=== PATIENT | female | born 1970 | race Caucasian/White ===

== ENCOUNTER 2018-05-01 14:13 | Emergency (ER) | payer OTHER ==
[2018-05-01] MEDS ORDERED: ETOMIDATE INJ/PF 20 MG/10 ML SDV IV ONE ×3 (14:16→14:24)
[2018-05-01] MEDS ORDERED: PROPOFOL 1,000 MG/100 ML INFUS..BTL IV ONE (14:17)
[2018-05-01] MEDS ORDERED: SUCCINYLCHOLINE CHLORIDE INJ 200 MG/10 ML VIAL IV ONE (14:25)
[2018-05-01] MEDS ORDERED: MIDAZOLAM HCL 50 MG/100 ML RTUINJ IV PRN (14:59)
[2018-05-01] MEDS ORDERED: MIDAZOLAM HCL 50 MG/100 ML RTUINJ ONE (14:59)
[2018-05-01 15:02] LABS: ABSOLUTE BASOPHILS # (AUTO) 0.1 10^3/uL (0.0-0.2); ABSOLUTE LYMPHOCYTES (AUTO) 1.4 10^3/uL (0.5-4.7); ABSOLUTE MONOCYTES (AUTO) 0.4 10^3/uL (0.1-1.4); ABSOLUTE NEUT (AUTO) 6.7 10^3/uL (1.7-8.2); BASOPHILS % (AUTO) 0.8 % (0-2); EOSINOPHILS % (AUTO) 0.5 % (0-6); HEMATOCRIT 39.4 % (36.0-47.0); HEMOGLOBIN 13.5 g/dL (12.0-15.5); LYMPHOCYTES % (AUTO) 15.7 % (13-45); MEAN CORPUSCULAR HEMOGLOBIN 30.8 pg (27.0-33.4); MEAN CORPUSCULAR HGB CONC 34.2 g/dL (32.0-36.0); MEAN CORPUSCULAR VOLUME 90 fl (80-97); MONOCYTES % (AUTO) 5.2 % (3-13); PLATELET COUNT 447 10^3/uL (150-450); RED BLOOD COUNT 4.37 10^6/uL (3.72-5.28); RED CELL DISTRIBUTION WIDTH 14.1 % (11.5-14.0); SEGMENTED NEUTROPHILS % (AUTO) 77.8 % (42-78); TOTAL CELLS COUNTED % (AUTO) 100 %; WHITE BLOOD COUNT 8.6 10^3/uL (4.0-10.5)
[2018-05-01 15:05] LABS: INTERNATIONAL RATION (INR) 0.85; PROTHROMBIN TIME 12.1 SEC (11.4-15.4)
[2018-05-01 15:08] LABS: D-DIMER 0.33 ug/mL (0.00-0.50)
[2018-05-01 15:15] LABS: ALANINE AMINOTRANSFERASE < 6 U/L (9-52); ALBUMIN 4.3 g/dL (3.5-5.0); ALKALINE PHOSPHATASE 69 U/L (38-126); ANION GAP 6 (5-19); ASPARTATE AMINO TRANSFERASE 47 U/L (14-36); BILIRUBIN,DIRECT 0.3 mg/dL (0.0-0.4); BILIRUBIN,TOTAL 0.5 mg/dL (0.2-1.3); BLOOD UREA NITROGEN 9 mg/dL (7-20); CALCIUM 9.3 mg/dL (8.4-10.2); CARBON DIOXIDE 27 mmol/L (22-30); CHLORIDE 106 mmol/L (98-107); CREATINE KINASE 35 U/L (30-135); GLUCOSE 97 mg/dL (75-110); POTASSIUM 4.7 mmol/L (3.6-5.0); SODIUM 138.9 mmol/L (137-145); TOTAL PROTEIN 7.4 g/dL (6.3-8.2)
[2018-05-01 15:32] LABS: FREE T4 (FREE THYROXINE) 1.94 ng/dL (0.78-2.19)
[2018-05-01 15:46] LABS: THYROID STIMULATING HORMONE 0.61 uIU/mL (0.47-4.68)
--- NOTE | 2018-05-01 15:46 | RADIOLOGY REPORT (SQ) ---
EXAM DESCRIPTION: CHEST SINGLE VIEW COMPLETED DATE/TIME: 05/01/2018 3:13 pm REASON FOR STUDY: difficulty breathing COMPARISON: None. NUMBER OF VIEWS: One view. TECHNIQUE: Single frontal radiographic view of the chest acquired. LIMITATIONS: None. FINDINGS: LUNGS AND PLEURA: No opacities, masses or pneumothorax. No pleural effusion. MEDIASTINUM AND HILAR STRUCTURES: No contour abnormalities. Previous median sternotomy. HEART AND VASCULAR STRUCTURES: Heart normal in size. Normal vasculature. BONES: No acute findings. HARDWARE: Appropriate endotracheal tube. Apparent nasogastric tube off the inferior aspect of the ra diograph. OTHER: No other significant finding. IMPRESSION: Appropriate endotracheal tube. Clear lungs. TECHNICAL DOCUMENTATION: JOB ID: [id number] [employer]- All Rights Reserved Reading location - IP/workstation name: [email or web address]
[2018-05-01 16:02] LABS: ARTERIAL BLOOD BASE EXCESS -0.8 mmol/L; ARTERIAL BLOOD H2CO3 1.05 mmol/L (1.05-1.35); ARTERIAL BLOOD O2 SATURATION 99.3 % (94-98); ARTERIAL BLOOD PH 7.44 (7.35-7.45); ARTERIAL BLOOD PO2 183.3 mmHg (80-100)
[2018-05-01 16:03] LABS: ARTERIAL BLOOD FIO2 40%
[2018-05-01 16:11] LABS: APPEARANCE,URINE CLEAR; BILIRUBIN,URINE NEGATIVE (NEGATIVE); COLOR,URINE STRAW; GLUCOSE, URINE NEGATIVE (NEGATIVE); KETONES,URINE NEGATIVE (NEGATIVE); LEUKOCYTE ESTERASE,URINE NEGATIVE (NEGATIVE); NITRITE,URINE NEGATIVE (NEGATIVE); PROTEIN,URINE NEGATIVE (NEGATIVE); URINE SPECIFIC GRAVITY 1.006; UROBILINOGEN,URINE NEGATIVE mg/dL (<2.0)
[2018-05-01] MEDS: DEXMEDETOMIDINE 400 MCG/NS 100 ML BOT IV PRN ×2 (16:20→19:50)
[2018-05-01] MEDS ORDERED: PROPOFOL 1,000 MG/100 ML INFUS..BTL IV PRN (16:22)
[2018-05-01 16:30] LABS: URINE AMPHETAMINES SCREEN NEGATIVE; URINE BARBITURATES SCREEN NEGATIVE; URINE BENZODIAZEPINES SCREEN NEGATIVE; URINE COCAINE SCREEN NEGATIVE; URINE MARIJUANA (THC) SCREEN NEGATIVE; URINE METHADONE SCREEN NEGATIVE; URINE PHENCYCLIDINE SCREEN NEGATIVE
[2018-05-01] MEDS ORDERED: DEXAMETHASONE SOD PHOS INJ 10 MG/1 ML VIAL IV ONE (17:34)
--- NOTE | 2018-05-01 18:03 | ER Document Report ---
ED General - General Chief Complaint: Respiratory Distress Stated Complaint: DIFFICULTY BREATHING Time Seen by Provider: 05/01/18 14:37 TRAVEL OUTSIDE OF THE [place] IN LAST 30 DAYS: No - HPI Patient complains to provider of: Difficulty breathing Notes: Patient coming in today for difficulty breathing. Patient is visiting from [place]. Patient has a history of myasthenia gravis. Patient was in trauma wound 1 upon my entrance into the ER today to start myself. I was called and there emergently. Patient was seen foaming at the mouth spitting requiring suctioning patient's family mother states has a history of myasthenia gravis states similar episodes recently when she was in crisis. Patient was on Mestinon and took 2 tablets prior to her arrival patient is seen very tachypneic with respiratory rate 30-40 also tachycardia with heart rate in 130s. Patient states she does not feel that she can swallow feels like her throat is closing up and also states that she cannot breathe. Patient also indicates that she is diffusely weak not moving her lower extremities. Family at bedside states this is again similar to when she has been intubated in the past. Patient has had a history of a trach. Patient is on nonrebreather no signs of hypoxia during my initial examination. Patient does look to be distress - Related Data Allergies/Adverse Reactions: ciprofloxacin [From Cipro] Adverse Reaction (Verified 05/01/18 14:29) Past Medical History - Social History Smoking Status: Unknown if Ever Smoked Family History: Reviewed & Not Pertinent Patient has suicidal ideation: No Patient has homicidal ideation: No Renal/ Medical History: Denies: Hx Peritoneal Dialysis Review of Systems - Review of Systems -: Yes ROS unobtainable due to patient's medical condition - Distress respiratory Physical Exam - Vital signs Vitals: Resp Pulse Ox 38 H 100 05/01/18 14:18 05/01/18 14:18 Interpretation: Tachycardic, Tachypneic - General General appearance: Alert, Anxious In distress: Severe - HEENT Head: Normocephalic, Atraumatic Eyes: Normal Pupils: PERRL - Respiratory Respiratory status: Respiratory distress, Tachypnea Chest status: Nontender Breath sounds: Normal Chest palpation: Normal - Cardiovascular Rhythm: Regular, Tachycardia Heart sounds: Normal auscultation Murmur: No - Abdominal Inspection: Normal Distension: No distension Bowel sounds: Normal Tenderness: Nontender Organomegaly: No organomegaly - Back Back: Normal, Nontender - Extremities General upper extremity: Normal inspection, Nontender, Normal color General lower extremity: Normal inspection, Nontender, Normal color - Neurological Neuro grossly intact: Yes Cognition: Normal Orientation: AAOx4 [place] Coma Scale Eye Opening: Spontaneous [place] Coma Scale Verbal: Oriented Ros Coma Scale Motor: Obeys Commands [place] Coma Scale Total: 15 Sensory: Normal - Psychological Associated symptoms: Anxious - Skin Skin Temperature: Warm Skin Moisture: Dry Skin Color: Normal Course - Re-evaluation Re-evalutation: 05/01/18 18:40 Because the patient is continuous with distress tachypnea tachycardia history of myasthenia crises recently, history of respiratory distress requiring tracheostomy. Decision was made to go ahead and intubate the patient to protect the patient's airway. Patient was given initially 20 mg of etomidate in an attempt to try to avoid any neuromuscular blockade however patient Junito was unable to open therefore no 20 mg of etomidate was given along with 100 mg of succinylcholine. Intubation was performed under glide scope as noted cords are patent there is no difficulty in passing ET tube. Patient remained stable on the ventilator pulling tidal volumes of 400-500 patient after intubation did become quite agitated moving all 4 extremities requiring boluses of propofol patient was then switched to a Versed drip unfortunately at our facility your unable to provide a fentanyl drip at this time therefore the patient was then again switched to Precedex. Precedex was titrated to relieve the patient's agitation Laboratory studies not show any critical pathology. Initially held off on steroids until discussion with hospitalist who recommended transfer to tertiary care facility. Discussed with Dr. Hopper ICU attending at [facility] agrees that this is steroids at this time agrees with accepting patient transferred. Otherwise patient has remained stable - Vital Signs Vital signs: Temp Pulse Resp BP Pulse Ox 98.5 F 12 146/85 H 100 05/01/18 17:44 05/01/18 17:44 05/01/18 17:44 05/01/18 17:44 - Laboratory Result Diagrams: 05/01/18 14:16 05/01/18 14:16 Laboratory results interpreted by me: 05/01/18 05/01/18 05/01/18 14:16 14:16 15:02 RDW 14.1 H ABG pO2 183.3 H ABG O2 Saturation 99.3 H AST 47 H ALT < 6 L Procedures - Intubation Orotracheal Airway evaluation: Normal anatomy, Copious secretions Mallampati Classification: Class 2 Medications: Etomidate, Succinylcholine Intubation method: Orotracheal Blade size: 3 Equipment used: Glidescope ETT size: 7.0 ETT secured at (cm): 21 End tidal CO2 confirmed: Yes Ventilator settings: SIMV Tidal volume: 400 FiO2: 100 Respirations: 16 Pressure support: 5 PEEP: 5 Post Intubation Xray: Yes Intubation Complications: No complications Critical Care Note - Critical Care Note Total time excluding time spent on procedures (mins): 50 Comments: respiratory distress Discharge - Discharge Clinical Impression: Myasthenia exacerbation, Respiratory distress Condition: Stable Disposition: [facility]
[2018-05-01 20:51] VITALS: BP 131/99
--- NOTE | 2018-05-03 00:50 | EKG REPORT ---
SEVERITY:- NORMAL ECG - SINUS RHYTHM : Confirmed by: Radha Clements MD 03-May-2018 00:49:37
== END 2018-05-01 21:05 | disposition short-term general hospital (02) ==
LOC: ER 14:13
PROC: 0BH17EZ Insertion of Endotracheal Airway into Trachea, Via Natural or Artificial Opening (ICD-10-PCS; principal; 2018-05-01)
DX: G70.00 Myasthenia gravis without (acute) exacerbation (principal); R06.82 Tachypnea, not elsewhere classified; R00.0 Tachycardia, unspecified; R53.1 Weakness
CPT/HCPCS: 93005; 36600; 99291; 51702; 96374; 36415; 84439; 82962; 82803; 82550; 83690; 84443; 85025; 85610; 80053; 81001; 84484; 80307; 85379; 83605; 71045; 93010; 94002; 31500; J2704; J2250; J1100; J3490; 94660; J0330